=== PATIENT | male | born 1995 | race Caucasian/White ===

== ENCOUNTER 2017-07-25 20:24 | Emergency (ER) | payer MEDICAID, OTHER ==
[~2017-07-25] VITALS: Ht 167.6 cm; Wt 54.4 kg
[2017-07-25 20:35] VITALS: BP 128/76
[2017-07-25 21:06] LABS: BASOPHILS % (AUTO) 1.3 % (0.0-2.0); EOSINOPHILS % (AUTO) 4.6 % (0.0-3.0); HEMATOCRIT 43.1 % (42.0-52.0); HEMOGLOBIN 14.9 G/DL (14.2-18.0); LYMPHOCYTES % (AUTO) 32.9 % (20.0-45.0); MEAN CORPUSCULAR VOLUME 91 FL (80-99); NEUTROPHILS % (AUTO) 51.2 % (45.0-75.0); PLATELET COUNT 300 K/UL (150-450); RED BLOOD COUNT 4.74 M/UL (4.70-6.10); WHITE BLOOD COUNT 9.9 K/UL (4.8-10.8)
[2017-07-25 21:08] LABS: ANION GAP 9 mmol/L (5-15); BLOOD UREA NITROGEN 19 mg/dL (7-18); CALCIUM 9.3 MG/DL (8.5-10.1); CARBON DIOXIDE 29 MMOL/L (21-32); CHLORIDE 101 MMOL/L (98-107); CREATININE 0.7 MG/DL (0.55-1.30); POTASSIUM 3.9 MMOL/L (3.5-5.1); SODIUM 139 MMOL/L (136-145)
[2017-07-25 21:12] LABS: ALANINE AMINOTRANSFERASE 40 U/L (12-78); ALBUMIN 4.3 G/DL (3.4-5.0); ALBUMIN/GLOBULIN RATIO 1.1 (1.0-2.7); ALKALINE PHOSPHATASE 87 U/L (46-116); ASPARTATE AMINO TRANSFERASE 42 U/L (15-37); BILIRUBIN,TOTAL 0.3 MG/DL (0.2-1.0)
[2017-07-25 22:35] VITALS: BP 130/73
[2017-07-26] VITALS (9 sets, daily range): BP systolic 106–131; BP diastolic 66–77
--- NOTE | 2017-07-26 00:23 | Emergency Room Report ---
History of Present Illness General Chief Complaint: Behavioral Complaint Source: Patient (Clarence Jones) Present Illness HPI Patient is a 21-year-old male who presented after reportedly being found on a building site by [employer]. The patient reportedly the attempted to jump off of a fence. Patient reportedly had been doing "poke". The patient not been vomiting. He reports having some discomfort to his right ear as well as some mild difficulty breathing related to asthma. The patient states he's been hospitalized in psychiatric hospitals for danger to self in the past.The patient would not respond to direct questioning of any suicidal thoughts (Clarence Jnoes) Allergies: Coded Allergies: UNABLE TO ASSESS (Unverified , 07/26/17) Patient History Past Medical History: see triage record, psych hx Reviewed Nursing Documentation: PMH: Agreed; PSxH: Agreed (RobertClarence) Nursing Documentation-PMH History Of Psychiatric Problem: Yes - schizophrenia, bipolar (Clarence Jones) Review of Systems All Other Systems: limited - by poor cooperation (Clarence Jones) Physical Exam Vital Signs Date Time Temp Pulse Resp B/P (MAP) Pulse Ox O2 Delivery O2 Flow Rate FiO2 07/25/17 20:15 98.2 99 20 133/76 100 Room Air 98.2 Sp02 EP Interpretation: reviewed, normal General Appearance: alert/responsive, no apparent distress, GCS 15, non-toxic Head: atraumatic Eyes: PERRL, lids + conjunctiva normal ENT: hearing intact, no angioedema Neck: supple/symm/no masses, no meningismus Respiratory: effort normal, no wheezing, chest symmetrical Cardiovascular: regular rate, rhythm, no edema Cardiovascular #2: 2+ carotid (R), 2+ carotid (L), 2+ dorsalis pedis (R), 2+ dorsalis pedis (L) Gastrointestinal: non-tender, no mass, non-distended, no rebound/guarding, normal bowel sounds Musculoskeletal: normal inspection, gait & station normal, digits & nails normal, strength & tone normal, normal ROM, non-tender Neurologic: normal inspection, CN II-XII intact, oriented x3, sensory intact, normal speech Psychiatric: normal inspection, memory normal Skin: no rash, well hydrated Lymphatic: normal inspection (Clarence Jones) Medical Decision Making ER Course Patient presented for bizarre behavior. Differential diagnoses include substance abuse, psychosis, bipolar disorder, depression, malingering, suicidal thoughts among others. Because of complexity of patient's case laboratory testing and imaging studies were ordered. The laboratory testing showed negative urine drug screen. The patient was medically cleared. Labs Test 07/25/17 20:45 07/25/17 21:30 White Blood Count 9.9 K/UL (4.8-10.8) Red Blood Count 4.74 M/UL (4.70-6.10) Hemoglobin 14.9 G/DL (14.2-18.0) Hematocrit 43.1 % (42.0-52.0) Mean Corpuscular Volume 91 FL (80-99) Mean Corpuscular Hemoglobin 31.5 PG (27.0-31.0) Mean Corpuscular Hemoglobin Concent 34.7 G/DL (32.0-36.0) Red Cell Distribution Width 12.0 % (11.6-14.8) Platelet Count 300 K/UL (150-450) Mean Platelet Volume 8.7 FL (6.5-10.1) Neutrophils (%) (Auto) 51.2 % (45.0-75.0) Lymphocytes (%) (Auto) 32.9 % (20.0-45.0) Monocytes (%) (Auto) 10.0 % (1.0-10.0) Eosinophils (%) (Auto) 4.6 % (0.0-3.0) Basophils (%) (Auto) 1.3 % (0.0-2.0) Sodium Level 139 MMOL/L (136-145) Potassium Level 3.9 MMOL/L (3.5-5.1) Chloride Level 101 MMOL/L (98-107) Carbon Dioxide Level 29 MMOL/L (21-32) Anion Gap 9 mmol/L (5-15) Blood Urea Nitrogen 19 mg/dL (7-18) Creatinine 0.7 MG/DL (0.55-1.30) Estimat Glomerular Filtration Rate > 60 mL/min (>60) Glucose Level 86 MG/DL (74-106) Calcium Level 9.3 MG/DL (8.5-10.1) Total Bilirubin 0.3 MG/DL (0.2-1.0) Aspartate Amino Transf (AST/SGOT) 42 U/L (15-37) Alanine Aminotransferase (ALT/SGPT) 40 U/L (12-78) Alkaline Phosphatase 87 U/L (46-116) Total Protein 8.1 G/DL (6.4-8.2) Albumin 4.3 G/DL (3.4-5.0) Globulin 3.8 g/dL Albumin/Globulin Ratio 1.1 (1.0-2.7) Salicylates Level 1.8 ug/mL (2.8-20) Acetaminophen Level < 2 MCG/ML (10-30) Serum Alcohol < 3 mg/dL Urine Opiates Screen Negative (NEGATIVE) Urine Barbiturates Screen Negative (NEGATIVE) Phencyclidine (PCP) Screen Negative (NEGATIVE) Urine Amphetamines Screen Negative (NEGATIVE) Urine Benzodiazepines Screen Negative (NEGATIVE) Urine Cocaine Screen Negative (NEGATIVE) Urine Marijuana (THC) Screen Negative (NEGATIVE) (Clarence Jones) ER Course Patient evaluated by the PET team. He was placed on a 5150 hold. We've been unable to place the patient. The patient was given 2 mg of Risperdal. He states he takes 5 mg but this is not ascertainable. The patient continues to be psychotic and out of control. Haldol, Ativan and Benadryl are ordered. Patient sedated and sleeping. Signed out to Dr. Moseley. (Zane Ornelas M.D.) Last Vital Signs Date Time Temp Pulse Resp B/P (MAP) Pulse Ox O2 Delivery O2 Flow Rate FiO2 07/25/17 22:35 98.0 88 17 130/73 100 Room Air 98.0 (Clarence Jones) Last Vital Signs Date Time Temp Pulse Resp B/P (MAP) Pulse Ox O2 Delivery O2 Flow Rate FiO2 07/27/17 02:59 65 14 100/63 96 Room Air 07/26/17 22:36 97.6 97.6 Status: improved (Zane Ornelas M.D.) Reevaluation Impression Per Dr. Price, patient with known psychosis, no need for 5150, but now more stable as drugs washed out. Dr. Price gave referral for outpatient psychiatry. She recommended 25mg IM fluphenazine and discharge so patient now dc'd. (HARITHA ROSS Disposition: HOME, SELF-CARE Condition: Stable Referrals: NOT CHOSEN LUCIO/,REFERRING (PCP) Clarence Jones July 26, 2017 00:23 Zane Ornelas M.D. July 26, 2017 20:43 HARITHA ROSS M.D July 27, 2017 11:53
[2017-07-26] MEDS ORDERED: LORazepam Inj 2mg/ml 1ml IM ONE (20:45)
[2017-07-26] MEDS ORDERED: DiphenhydrAMINE 50mg/ml Inj IM ONE (20:45)
[2017-07-26] MEDS ORDERED: Haloperidol 5mg/ml Inj IM ONE (20:45)
[2017-07-27 02:59] VITALS: BP 100/63
[2017-07-27 06:39] VITALS: BP 126/65
[2017-07-27 09:29] VITALS: BP 111/63
[2017-07-27] MEDS ORDERED: fluPHENAZine Decanoate 25mg Inj IM ONE (12:00)
[2017-07-27 13:18] VITALS: BP 121/70
== END 2017-07-27 13:18 | disposition home or self-care (01) ==
LOC: EDBD 20:24 → EMR 22:05
DX: F91.9 Conduct disorder, unspecified (principal)
CPT/HCPCS: 36415; 80053; 80307; 80329; 85025; 96372; 99283; J1200; J1630